=== PATIENT | female | born 1955 | race Caucasian/White ===

== ENCOUNTER → 2025-05-03 | Outpatient (CLI) | payer BC ==
--- NOTE | 2025-05-03 18:19 | HMCIMG ---
EXAM: CR Cervical spine, 6 View. CLINICAL HISTORY: C SPINE BENDING FILMS, CERVICALGIA, STENOSIS COMPARISON: None provided. FINDINGS: BONES: No acute fracture or aggressive appearing osseous lesion. There is no evidence of subluxation on flexion or extension. DISCS/DEGENERATIVE CHANGES: The disc spaces are preserved. Posterior vertebral body alignment is within normal limits. SOFT TISSUES: No prevertebral soft tissue swelling. The visualized lung apices are clear. IMPRESSION: No acute cervical spine abnormality. /[place]
--- NOTE | 2025-05-04 19:14 | HMCIMG ---
EXAM: MR Cervical Spine Without Intravenous Contrast. CLINICAL HISTORY: Spinal stenosis. TECHNIQUE: Magnetic resonance images of the cervical spine in multiple planes. CONTRAST: None. COMPARISON: Radiograph done on the same date. FINDINGS: The imaged posterior fossa is unremarkable. The craniocervical junction is intact. No acute fracture. Mild dextroscoliosis. Mild straightening of the expected cervical lordosis reflects paraspinal muscle spasm. Multilevel spondylosis is evident by marginal osteophytes and facet joint arthropathy. Multilevel disc desiccation noted. Normal vertebral body and disc heights. Small hemangioma noted in the C5 vertebral body. No abnormal signal involves the cord. No extra-axial masses. The surrounding soft tissues are unremarkable. Level by level disease is present as follows: C1-C2: No osteoarthritis. C2-C3: No disc bulge or herniation. No neural foraminal, lateral recess or spinal canal stenosis. C3-C4: 2 mm left predominant disc osteophyte complex bulge causing mild indentation on the anterior thecal sac and mild left foraminal narrowing. No lateral recess stenosis. C4-C5: 2 mm disc osteophyte complex bulge causing mild indentation on the anterior thecal sac. No neural foraminal or lateral recess stenosis. C5-C6: 2 mm disc osteophyte complex bulge causing mild canal narrowing with indentation on the anterior cord. No neural foraminal or lateral recess stenosis. C6-C7: No disc bulge or herniation. No neural foraminal, lateral recess or spinal canal stenosis. C7-T1: No disc bulge or herniation. No neural foraminal, lateral recess or spinal canal stenosis. IMPRESSION: Mild dextroscoliosis. Mild straightening of the expected cervical lordosis reflects paraspinal muscle spasm. Mild multilevel spondylosis. Mild indentation on the anterior thecal sac and mild left foraminal narrowing at the C3-C4 level. Mild indentation on the anterior thecal sac at the C4-C5 level. Mild canal narrowing with indentation on the anterior cord at the C5-C6 level. /[place]
== END | disposition home or self-care (01) ==
LOC: RAH 14:10
PROVIDERS: ATTEND Physical Medicine & Rehabilitation
DX: M50.31 Other cervical disc degeneration, high cervical region (principal); M50.321 Other cervical disc degeneration at C4-C5 level; M50.322 Other cervical disc degeneration at C5-C6 level; M47.812 Spondylosis without myelopathy or radiculopathy, cervical region; M48.02 Spinal stenosis, cervical region; M41.82 Other forms of scoliosis, cervical region; M62.830 Muscle spasm of back; M25.78 Osteophyte, vertebrae; D18.09 Hemangioma of other sites
CPT/HCPCS: 72050; 72141